=== PATIENT | male | born 1990 | race African-American/Black ===

== ENCOUNTER 2021-02-12 22:39 | Emergency (ER) | payer SELFPAY ==
[~2021-02-12] VITALS: Ht 190.5 cm; Wt 76.4 kg
[2021-02-12] MEDS ORDERED: METHOCARBAMOL 1,000 MG/10 ML VIAL (J2800) IV ONE (23:35)
[2021-02-12] MEDS ORDERED: KETOROLAC 30 MG/ML 1ML VIAL IV ONE (23:35)
--- NOTE | 2021-02-13 00:56 | REPVR ---
PROCEDURE INFORMATION: Exam: CT Lumbar Spine Without Contrast Exam date and time: 02/12/2021 11:50 PM Age: 30 years old Clinical indication: Low back pain; Additional info: Low back pain after blunt trauma TECHNIQUE: Imaging protocol: Computed tomography images of the lumbar spine without contrast. Radiation optimization: All CT scans at this facility use at least one of these dose optimization techniques: automated exposure control; mA and/or kV adjustment per patient size (includes targeted exams where dose is matched to clinical indication); or iterative reconstruction. COMPARISON: No relevant prior studies available. FINDINGS: Vertebrae: No segmental lumbar vertebral malalignment. Vertebral body height and morphology is maintained. No acute fracture or destructive process. Discs/Spinal canal/Neural foramina: Minor broad-based disc bulge L5-S1 and probably L4-L5. Vasculature: No dilatation of the imaged distal abdominal aorta. Soft tissues: No significant soft tissue abnormality of the imaged retroperitoneum. IMPRESSION: 1. No fracture or other acute osseous abnormality involving the lumbar spine. 2. Probable minor disc bulges L4-L5 and L5-S1 Electronically signed by: Ronaldo Zuñiga On 02/13/2021 00:56:27 AM
[2021-02-13] MEDS ORDERED: METH-1165 PO (02:21)
[2021-02-13] MEDS ORDERED: NAPR-837 PO (02:21)
[2021-02-13 02:35] VITALS: BP 128/84
== END 2021-02-13 02:40 | disposition home or self-care (01) ==
LOC: M ED 22:39
DX: M54.5 Low back pain (principal); F12.20 Cannabis dependence, uncomplicated; Z77.098 Contact with and (suspected) exposure to other hazardous, chiefly nonmedicinal, chemicals; Z91.030 Bee allergy status
CPT/HCPCS: 72131; 96374; 96375; 99284; J1885; J2800